=== PATIENT | female | born 1970 | race Caucasian/White ===

== ENCOUNTER 2016-08-16 07:07 | Outpatient (CLI) | payer OTHER ==
[2016-03-15 19:44] VITALS: BMI 37.2
--- NOTE | 2016-08-16 08:49 | DI ---
EXAM: Cervical spine five views HISTORY: Headaches COMPARISON: None TECHNIQUE: Five views cervical spine were performed including oblique views FINDINGS: Vertebral bodies normal height. No fracture. No subluxation. Intervertebral spaces main tained. Mild multilevel facet and uncovertebral hypertrophy. Neural foramen are patent. Preverteb ral soft tissues appear normal. IMPRESSION: Mild chronic degenerative changes.
== END 2016-08-16 07:08 | disposition home or self-care (01) ==
LOC: RAD 07:07
PROVIDERS: ATTEND Family Medicine
DX: M54.2 Cervicalgia (principal); R51 Headache

== ENCOUNTER 2016-11-20 07:21 | Outpatient (CLI) | payer OTHER ==
[2016-03-15 19:44] VITALS: BMI 37.2
[2016-11-20 08:02] LABS: BASOPHILS % (AUTO) 0.7 % (0.0-3.0); EOSINOPHILS # (AUTO) 0.1 K/ul (0.0-0.7); EOSINOPHILS % (AUTO) 2.2 % (0.0-7.0); HEMOGLOBIN 10.1 g/dl (12.0-16.0); IMMATURE GRANULOCYTE % (AUTO) 0.3 % (0.0-5.0); LYMPHOCYTES # (AUTO) 2.2 K/uL (0.60-3.4); LYMPHOCYTES % (AUTO) 36.8 (10.0-50.0); MEAN CORPUSCULAR HEMOGLOBIN 22.9 pg (27.0-31.0); MEAN CORPUSCULAR HGB CONC 30.6 (31.8-35.4); MEAN CORPUSCULAR VOLUME 74.8 fl (81.0-99.0); MONOCYTES # (AUTO) 0.5 K/uL (0.4-2.0); MONOCYTES % (AUTO) 7.9 (0-10); NEUTROPHILS # (AUTO) 3.1 K/ul (2.0-6.9); NEUTROPHILS % (AUTO) 52.1; PLATELET COUNT 421 10^3/uL (140-440); RED BLOOD COUNT 4.41 10^6/ul (4.20-5.40); WHITE BLOOD COUNT 5.93 K/ul (4.6-10.2)
[2016-11-20 08:26] LABS: ALBUMIN 3.8 g/dL (3.4-5.0); ALBUMIN/GLOBULIN RATIO 0.93; BILIRUBIN,TOTAL 0.26 mg/dL (0.00-1.20); BUN/CREATININE RATIO 18.84; CALCIUM 9.4 mg/dL (8.2-10.2); CREATININE 0.69 mg/dL (0.60-1.30); TOTAL PROTEIN 7.9 g/dL (6.4-8.2)
[2016-11-20 08:33] LABS: ERYTHROCYTE SEDIMENTATION RATE 22 mm/hr (0-20); ESR INTERNAL QC INTERNAL QC VALID
--- NOTE | 2016-11-20 08:35 | DI ---
EXAM: Two views of the pelvis. History: Lower back pain. Findings: No acute fracture or dislocation. Joint spaces are relatively preserved. Small pelvic ca lcifications are probably phleboliths. Impression: No acute osseous abnormalities.
--- NOTE | 2016-11-20 08:43 | DI ---
EXAM: Two views of the right hip. History: Right hip pain. Comparison: Right hip radiograph 06/02/2015 Findings: No acute fracture or dislocation. Pelvic calcifications are probably phleboliths. Right hip joint space is preserved. Impression: No acute osseous abnormality. If pain persists, recommend MRI.
--- NOTE | 2016-11-20 08:45 | DI ---
EXAM: Five views of the lumbar spine. History: Lower back pain. Findings: Pelvic calcifications are probably phleboliths. Cholecystectomy clips. No suspicious ca lcifications seen projecting over the renal shadows. Moderate colonic stool. No acute fracture or subluxation of the lumbar spine. Mild multilevel degenerative disc space narro wing with a few small anterior osteophytes. Impression: No acute osseous abnormality. Mild degenerative disc disease.
== END 2016-11-20 07:22 | disposition home or self-care (01) ==
LOC: LAB 07:21
PROVIDERS: ATTEND Internal Medicine Rheumatology
DX: M25.50 Pain in unspecified joint (principal); R53.83 Other fatigue; Z79.1 Long term (current) use of non-steroidal anti-inflammatories (NSAID); M54.5 Low back pain; M25.551 Pain in right hip
CPT/HCPCS: 36415; 80053; 80074; 81374; 85025; 85651; 86140; 86200

== ENCOUNTER 2017-10-03 07:22 | Outpatient (CLI) | payer OTHER ==
[2016-03-15 19:44] VITALS: BMI 37.2
== END 2017-10-03 07:23 | disposition home or self-care (01) ==
LOC: LAB 07:22
PROVIDERS: ATTEND Family Medicine
DX: D64.9 Anemia, unspecified (principal)
CPT/HCPCS: 36415; 82607; 82728; 83540

== ENCOUNTER 2017-11-26 07:22 | Outpatient (CLI) ==
[2016-03-15 19:44] VITALS: BMI 37.2
[2017-11-26 08:50] VITALS: BP 136/56; TEMP 98.7
[2017-11-26] MEDS ORDERED: VENOFER 200 MG in SODIUM CHLORIDE 100 ML IV ONE (08:56)
== END 2017-11-26 07:23 | disposition home or self-care (01) ==
LOC: OPMED 07:22
PROVIDERS: ATTEND Internal Medicine
DX: D50.9 Iron deficiency anemia, unspecified (principal); K90.9 Intestinal malabsorption, unspecified
CPT/HCPCS: 96365

== ENCOUNTER 2017-11-28 07:19 | Outpatient (CLI) ==
[2016-03-15 19:44] VITALS: BMI 37.2
[2017-11-28] MEDS ORDERED: VENOFER 200 MG in SODIUM CHLORIDE 100 ML IV ONE (07:47)
[2017-11-28 09:16] VITALS: BP 125/66; TEMP 97.2
== END 2017-11-28 07:20 | disposition home or self-care (01) ==
LOC: OPMED 07:19
PROVIDERS: ATTEND Internal Medicine
DX: D50.9 Iron deficiency anemia, unspecified (principal); K90.9 Intestinal malabsorption, unspecified
CPT/HCPCS: 96365

== ENCOUNTER 2017-12-03 08:01 | Outpatient (CLI) ==
[2016-03-15 19:44] VITALS: BMI 37.2
[2017-12-03] MEDS ORDERED: VENOFER 200 MG in SODIUM CHLORIDE 100 ML IV ONE (08:43)
[2017-12-03 08:46] VITALS: BP 135/94; TEMP 97.7
== END 2017-12-03 08:02 | disposition home or self-care (01) ==
LOC: OPMED 08:01
PROVIDERS: ATTEND Internal Medicine
DX: D50.9 Iron deficiency anemia, unspecified (principal); K90.9 Intestinal malabsorption, unspecified
CPT/HCPCS: 96365

== ENCOUNTER 2017-12-05 10:24 | Outpatient (CLI) ==
[2016-03-15 19:44] VITALS: BMI 37.2
[2017-12-05] MEDS ORDERED: VENOFER 200 MG in SODIUM CHLORIDE 100 ML IV ONE (10:45)
[2017-12-05 10:47] VITALS: BP 136/55; TEMP 98.7
== END 2017-12-05 10:25 ==
LOC: OPMED 10:24
PROVIDERS: ATTEND Internal Medicine
DX: D50.9 Iron deficiency anemia, unspecified (principal); K90.9 Intestinal malabsorption, unspecified
CPT/HCPCS: 96365

== ENCOUNTER 2017-12-12 07:25 | Outpatient (CLI) ==
[2016-03-15 19:44] VITALS: BMI 37.2
[2017-12-12 07:55] VITALS: BP 101/56; TEMP 98.6
[2017-12-12] MEDS ORDERED: VENOFER 200 MG in SODIUM CHLORIDE 100 ML IV ONE (07:58)
--- NOTE | 2017-12-12 08:10 | DI ---
EXAM: Two views of the right calcaneus History: Right heel pain. Findings: No acute fracture or dislocation. 3 mm enthesiophyte at the insertion of the Achilles ten don. No abnormal calcifications or radiopaque foreign bodies. Joint spaces are preserved. Impression: 1. No acute osseous abnormality. 2. Mild enthesiopathy at the insertion of the Achilles tendon.
== END 2017-12-12 07:26 | disposition home or self-care (01) ==
LOC: OPMED 07:25
PROVIDERS: ATTEND Internal Medicine
DX: D50.9 Iron deficiency anemia, unspecified (principal); K90.9 Intestinal malabsorption, unspecified; M79.671 Pain in right foot
CPT/HCPCS: 96365

== ENCOUNTER 2017-12-13 07:25 | Outpatient (CLI) ==
[2016-03-15 19:44] VITALS: BMI 37.2
[2017-12-13] MEDS ORDERED: VENOFER 200 MG in SODIUM CHLORIDE 100 ML IV ONE (08:01)
[2017-12-13 08:08] VITALS: BP 134/85; TEMP 97.1
== END 2017-12-13 07:26 | disposition home or self-care (01) ==
LOC: OPMED 07:25
PROVIDERS: ATTEND Internal Medicine
DX: D50.9 Iron deficiency anemia, unspecified (principal); K90.9 Intestinal malabsorption, unspecified
CPT/HCPCS: 96365

== ENCOUNTER 2017-12-18 07:12 | Outpatient (CLI) ==
[2016-03-15 19:44] VITALS: BMI 37.2
[2017-12-18 07:33] VITALS: BP 144/85; TEMP 98.6
[2017-12-18] MEDS ORDERED: VENOFER 200 MG in SODIUM CHLORIDE 100 ML IV ONE (07:34)
--- NOTE | 2017-12-18 10:25 | ED.PDOC ---
Procedures - IV/Art Line Insertion Location: Wrist rt Type of Line: Peripheral IV Invasive Line/IV Catheter Gauge: 22 Number of Attempts: 1 Blood Return Positive: Yes Invasive Line/IV Flushes Without Difficulty: Yes Conscious Sedation - Pre-op Assessment Weight: 202 lb Surgical History: RIGHT KNEE, TUBAL LIGATION, GALLBLADDER, BILATERAL CARPAL TUNNEL - Medical History Past Medical History: Diabetes, Anemia, GERD, Depression, Anxiety, Migraines Other History: borderline diabetes
== END 2017-12-18 07:13 | disposition home or self-care (01) ==
LOC: OPMED 07:12
PROVIDERS: ATTEND Internal Medicine
DX: D50.9 Iron deficiency anemia, unspecified (principal); K90.9 Intestinal malabsorption, unspecified
CPT/HCPCS: 96365

== ENCOUNTER 2017-12-20 07:29 | Outpatient (CLI) ==
[2016-03-15 19:44] VITALS: BMI 37.2
[2017-12-20 08:17] VITALS: BP 142/78; TEMP 97.8
[2017-12-20] MEDS ORDERED: VENOFER 200 MG in SODIUM CHLORIDE 100 ML IV ONE (08:21)
== END 2017-12-20 07:30 | disposition home or self-care (01) ==
LOC: OPMED 07:29
PROVIDERS: ATTEND Internal Medicine
DX: D50.9 Iron deficiency anemia, unspecified (principal); K90.9 Intestinal malabsorption, unspecified
CPT/HCPCS: 96365

== ENCOUNTER 2018-09-10 10:49 | Emergency (ER) ==
[2018-09-10 10:57] VITALS: TEMP 99.4; BMI 35.9
--- NOTE | 2018-09-10 11:25 | ED.PDOC ---
General ED Provider: Dr. YOEL LANE Chief Complaint: Chest Pain Stated Complaint: 47 y old female patient in no acute distress complaining for a nonspecific disc omfort in midepigastric region with radiatioon down her abdomen and braydon the chest, Time Seen by Physician: 10:50 Mode of Arrival: Walk-In Information Source: Patient Exam Limitations: No limitations Primary Care Provider: BYRON SOLOMON Nursing and Triage Documentation Reviewed and Agree: Yes Does patient meet sepsis criteria?: No System Inflammatory Response Syndrome: Not Applicable Sepsis Protocol: For patient's 13 years and over: Temp is 96.8 and below OR 101 and greater Pulse >90 BPM Resp >20/minute Acutely Altered Mental Status Are patient's symptoms suggestive of a new infection, such as: -Pneumonia -Skin, Soft Tissue -Endocarditis -UTI -Bone, Joint Infection -Implantable Device -Acute Abdominal Infection -Wound Infection -Meningitis -Blood Stream Catheter Infection -Unknown Cardiovascular Complaint Exam - Chest Pain Complaint/Exam Duration: one day,on-off possibly from yesterday Symptoms Are: Still present Timing: Intermittent Length of Chest Pain Episodes: high epigastric discomfort not related to meals, on-off one day Initial Severity: Moderate Current Severity: Mild Location: Reports: Discrete Pain Radiates: Reports: Epigastrium, Other Character: Reports: Aching Aggravating: Reports: None Alleviating: Reports: Rest Associated Signs and Symptoms: Reports: Abdominal pain Related History: Reports: Similar episode Related Surgical History: Reports: None History of Healthcare-Acquired Pneumonia: Reports: No AMI/ACS Risk Factors: Reports: Hypertension TAD Risk Factors: Reports: Hypertension Pulmonary Embolism Risk Factors: Reports: None Prior Care for this Complaint: No Recent Stress Test: No Recent Echo/LV Function: No JVD Present: No Subcutaneous Emphysema Present: No Diminshed Breath Sounds: No Reproducible Chest Wall Pain: No Bilateral Pulses Present: Yes Unequal Pulses Noted: No If Risk Factors for AMI/ACS Consider: EKG, Cardiac Enzymes Differential Diagnoses: ACS, Unstable Angina, Chest Wall Pain, GI Diseasae Quality Indicators For Acute AL or Cardiac Chest Pain: EKG in 10min. Quality Indicator For Non-Traumatic Chest Pain/Syncope: EKG Performed Review of Systems - Review Of Systems Constitutional: Reports: Other Eyes: Reports: No symptoms Ears, Nose, Mouth, Throat: Reports: No symptoms Respiratory: Reports: No symptoms Cardiac: Reports: Palpitations GI: Reports: Abdominal pain : Reports: No symptoms Musculoskeletal: Reports: No symptoms Neurological: Reports: No symptoms Endocrine: Reports: No symptoms Hematologic/Lymphatic: Reports: No symptoms All Other Systems: Reviewed and Negative Past Medical History - Past Medical History Endocrine: Reports: DM 2 Cardiovascular: Reports: None Respiratory: Reports: None Hematological: Reports: Anemia Gastrointestinal: Reports: GERD Genitourinary: Reports: None Neuro/Psych: Reports: Migraine, Anxiety, Depression Musculoskeletal: Reports: None Cancer: Reports: None Last Menstrual Period: tubal - Surgical History General Surgical History: Reports: Cholecystectomy, Orthopedic (Bilateral Carple tunnel , Right Knee ). Denies: Appendectomy - Family History Family History: Reports: Unknown - Social History Smoking Status: Former smoker Hx Substance Use: No Alcohol Screening: None - Immunizations Tetanus Shot up to Date: Yes Physical Exam - Physical Exam Appearance: No pain distress Ill-appearing: Mild Pain Distress: Mild Eyes: ELIESER, EOMI, Conjunctiva clear ENT: Ears normal, Nose normal, Oropharynx normal Neck: Supple Respiratory: Airway patent, Breath sounds clear Cardiovascular: RRR, Pulses normal, No rub GI/: Soft, No Organomegaly, Tender Musculoskeletal: Normal strength Skin: Warm, Dry Neurological: Sensation intact Psychiatric: Affect appropriate Critical Care Note - Critical Care Note Total Time (mins): 0 Course - Course Hematology/Chemistry: 09/10/18 11:33 09/10/18 11:33 Orders, Labs, Meds: Lab Review 09/10/18 09/10/18 11:33 11:33 WBC 6.00 RBC 4.58 Hgb 13.6 Hct 41.4 MCV 90.4 MCH 29.7 MCHC 32.9 RDW Coeff of Hilary 13.0 Plt Count 269 Immature Gran % (Auto) 0.5 Neut % (Auto) 76.3 Lymph % (Auto) 15.7 [place] % (Auto) 7.0 Eos % (Auto) 0.2 Baso % (Auto) 0.3 Immature Gran # (Auto) 0.0 Neut # (Auto) 4.6 Lymph # (Auto) 0.9 [place] # (Auto) 0.4 Eos # (Auto) 0.0 Baso # (Auto) 0.0 Sodium 135.5 Potassium 3.69 Chloride 99.9 Carbon Dioxide 26.6 Anion Gap 12.69 BUN 12.9 Creatinine 0.50 L Estimated GFR (MDRD) 132.00 BUN/Creatinine Ratio 25.80 Glucose 88.4 Calcium 9.05 Total Bilirubin 0.78 AST 22.0 ALT 17.5 Alkaline Phosphatase 85.1 Total Creatine Kinase 31.6 Troponin I < 0.012 Total Protein 7.19 Albumin 4.39 Globulin 2.80 Albumin/Globulin Ratio 1.56 Orders Category Date Time Status EKG-(ED ONLY) Stat CARDIO 09/10/18 11:16 Completed ED APPLY O2 .ONCE EMERGENCY 09/10/18 11:16 Active ED IV/MEDIPORT/POWERPORT .ONCE EMERGENCY 09/10/18 11:16 Active CBC W/ AUTO DIFF Stat LAB 09/10/18 11:33 Completed COMPREHENSIVE METABOLIC PANEL Stat LAB 09/10/18 11:33 Completed CREATINE KINASE Stat LAB 09/10/18 11:33 Completed TROPONIN I Stat LAB 09/10/18 11:33 Completed 0.9 % Sodium Chloride [Saline Flush] MEDS 09/10/18 11:16 Active 1 syr IVF PRN PRN Enalaprilat Dihydrate [Vasotec IV] MEDS 09/10/18 11:20 Discontinued 1.25 mg IVP ONCE STA Hydromorphone HCl [Dilaudid 0.5 mg/0.5 ml Syringe] MEDS 09/10/18 13:06 Discontinued 0.5 mg IVP ONCE STA Promethazine HCl [Phenergan 25 mg/ml Vial] 25 mg MEDS 09/10/18 13:07 Active 0.9 % Sodium Chloride [Sodium Chloride] 50 ml IV ONCE Sodium Chloride 0.9% [Sodium Chloride] 500 ml MEDS 09/10/18 13:08 Active IV BOLUS CHEST, 1V AP ONLY Stat RADS 09/10/18 11:[address] ABDOMEN/PELVIS WO CONTRAST Stat RADS 09/10/18 11:22 Completed Medications Generic Name Dose Route Start Last Admin Trade Name Freq PRN Reason Stop Dose Admin Promethazine HCl 25 mg/ Sodium 51 mls @ 75 mls/hr 09/10/18 13:07 Chloride IV 09/10/18 13:47 ONCE STA Sodium Chloride 500 mls @ 500 mls/hr 09/10/18 13:08 Sodium Chloride IV 09/10/18 14:07 BOLUS STA Sodium Chloride 1 syr 09/10/18 11:16 Saline Flush IVF PRN PRN To flush IV Discontinued Medications Generic Name Dose Route Start Last Admin Trade Name Brady PRN Reason Stop Dose Admin Enalaprilat 1.25 mg 09/10/18 11:20 Vasotec Iv IVP 09/10/18 11:21 ONCE STA Hydromorphone HCl 0.5 mg 09/10/18 13:06 Dilaudid 0.5 Mg/0.5 Ml Syringe IVP 09/10/18 13:07 ONCE STA Vital Signs: Temp Pulse Resp BP Pulse Ox 09/10/18 11:59 137/95 H 09/10/18 10:50 99.4 F 101 H 16 160/92 H 98 ISAI Risk Score ISAI Risk Score: Risk Score Odds of by 30D 0 0.1 (0.1-0.2) 1 0.3 (0.2-0.3) 2 0.4 (0.3-0.5) 3 0.7 (0.6-0.9) 4 1.2 (1.0-1.5) 5 2.2 (1.9-2.6) 6 3.0 (2.5-3.6) 7 4.8 (3.8-6.1) Departure - Departure Time of Disposition: 13:20 Disposition: HOME SELF-CARE Discharge Problem: Dyspepsia Instructions: Indigestion (ED) Condition: Good Pt referred to PMD for follow-up: Yes (f/u with DrStaten) IPMP verified?: No Additional Instructions: Cipro 500 mg qd x 5 days./for enteric clitis-=mild/,Phenergan 25 mg tab po bis prn NV. Allergies/Adverse Reactions: Allergies Penicillins Adverse Reaction (Verified 09/10/18 11:05) Sulfa (Sulfonamide Antibiotics) Adverse Reaction (Verified 09/10/18 11:05) band-aid Adverse Reaction (Uncoded 09/10/18 11:05) Home Medications: Ambulatory Orders Buspirone HCl 15 mg PO BID 03/15/16 Diclofenac Sodium [Voltaren-Xr] 100 mg PO DAILY 03/15/16 Escitalopram Oxalate [Lexapro] 10 mg PO DAILY 03/15/16 Norethindrone AC-Eth Estradiol [Loestrin 21 1-20 Tablet] 1 tab PO DAILY Omeprazole [Prilosec] 20 mg PO QDAC 03/15/16 Gabapentin [Neurontin] 200 mg PO TID 09/10/18 Tizanidine HCl [Zanaflex] 4 mg PO DIRECTED PRN 09/10/18 Disposition Discussed With: Patient, Family
--- NOTE | 2018-09-10 12:51 | CT ---
EXAM: CT ABDOMEN AND PELVIS HISTORY: Abdominal pain TECHNIQUE: CT abdomen and pelvis without intravenous contrast. Images were reconstructed using 3 mm section thickness. Reformations were prepared. COMPARISON: 10/13/2013 FINDINGS: Diagnostic limitations may exist without including contrast enhanced images. No focal hepatic or spl enic lesions. Gallbladder is absent. Pancreas and adrenal glands appear normal. Normal appearance of the kidneys with no nephrolithiasis, perinephric fat stranding or hydronephrosis. The ureters are clear. Normal abdominal aorta. Stable scattered nonspecific small mesenteric root lymph nodes. The stomach appears normal. Normal appendix. Mild thickening of the colonic wall with sparing of th e rectosigmoid. Bowel gas pattern is within normal limits. Uterus and urinary bladder appear normal . There is no ascites or inflammatory infiltration of the abdominal fat. There is a tiny fatty umbilical hernia with a transverse neck of less than a centimeter, stable. The bones . reveal mild degenerative endplate changes and there is facet arthropathy of the lower spine . Lung bases demonstrate a stable 5 mm noncalcified nodule posteriorly on the right. No pneumoperit oneum is seen. IMPRESSION: 1. Questionable mild colitis. Consider infectious or inflammatory etiologies. Normal bowel gas pat tern. No ascites or free air. Normal appendix. 2. Small mesenteric root lymph nodes may represent a degree of adenitis. 3. Stable 5 mm noncalcified right lung base nodule since 2013.
--- NOTE | 2018-09-10 13:03 | DI ---
EXAM: Chest one view HISTORY: Chest pain COMPARISON: 03/15/2016 TECHNIQUE: Single view of the chest was performed FINDINGS: The lungs are clear. There is no pleural effusion or pneumothorax. The heart is normal i n size. The mediastinal contour is normal. There are no acute abnormalities of the bones. IMPRESSION: No acute cardiopulmonary process.
[2018-09-10] MEDS: SODIUM CHLORIDE 500 ML IV STA (13:27)
[2018-09-10] MEDS: PHENERGAN 25 MG/ML VIAL ONE (13:28)
[2018-09-10] MEDS: PHENERGAN 25 MG/ML VIAL 25 MG in SODIUM CHLORIDE 50 ML IV STA (13:42)
[2018-09-10] MEDS: DILAUDID 0.5 MG/0.5 ML SYRINGE IVP STA (13:42)
[2018-09-10 14:46] VITALS: BP 104/72
[2018-09-10] MEDS: VASOTEC IV IVP STA (15:04)
== END 2018-09-10 15:15 | disposition home or self-care (01) ==
LOC: ED 10:49
DX: R07.9 Chest pain, unspecified (principal); R00.2 Palpitations; R10.13 Epigastric pain
CPT/HCPCS: 36415; 80053; 82550; 84484; 85025; 86677; 93005; 93010; 96361; 96365; 96375; 99283